=== PATIENT | male | born 1965 | race Caucasian/White ===

== ENCOUNTER 2017-03-30 19:56 | Emergency (ER) | payer OTHER ==
[2017-03-30 19:58] VITALS: BP 130/79; PULSE 77; RESP 16; TEMP 98.5; O2SAT 97
--- NOTE | 2017-03-30 20:54 | PD ---
HPI Chief Complaint: Musculoskeletal Complaint Time Seen by Provider: 20:43 Travel History International Travel<30 days: No Contact w/Intl Traveler<30days: No Traveled to known affect area: No History of Present Illness HPI 52-year-old white male presents to emergency department complains of left foot pain now for one month. He states that he had a fracture in his foot which he had seen Dr. Kuo. He states that this feels the same as if he had broken in the past. He states the pain is mild but can be moderate with attempting to weight-bear. States the pain is along the lateral side part of his foot. He states that the fracture was initially diagnosed by MRI. He was placed in a boot for 8 weeks. He states that he has been back walking on his foot again now for the last 2-3 months. He does not recall any recurrent injury. He denies any focal numbness, tingling or weakness. PFSH Past Medical History Narrative Medical Left foot fracture Diminished Hearing: No Tetanus Vaccination: < 5 Years Past Surgical History Surgical History: No Previous Surgery Social History Alcohol Use: No Tobacco Use: No Substance Use: No Allergies-Medications (Allergen,Severity, Reaction): Coded Allergies: cortisone (Unverified Allergy, Severe, 10/27/16) Reported Meds & Prescriptions Reported Meds & Active Scripts Active Diclofenac Sodium DR (Diclofenac Sodium) 75 Mg Tabdr 75 Mg PO BID Review of Systems General / Constitutional: No: Fever Eyes: No: Visual changes HENT: No: Headaches Cardiovascular: No: Chest Pain or Discomfort Respiratory: No: Shortness of Breath Gastrointestinal: No: Abdominal Pain Genitourinary: No: Dysuria Musculoskeletal: Positive: Limited ROM, Pain, No: Myalgias, Arthralgias, Weakness, Cramping, Edema Skin: No Rash Neurologic: No: Weakness Psychiatric: No: Depression Endocrine: No: Polydipsia Hematologic/Lymphatic: No: Easy Bruising Physical Exam Narrative GENERAL: This is a well-nourished, well-developed patient, in no apparent distress. SKIN: No rashes, ecchymoses or lesions. Warm and dry. HEAD: Atraumatic. Normocephalic. EYES: PERRL, EOMI, no discharge or injection. No scleral icterus. EARS: Clear NOSE: Nasal turbinates appear normal. THROAT: Mucosa pink and moist. Airway patent. NECK: Trachea midline. supple, moves head freely. LUNGS: Clear to auscultation. CV: Regular in rhythm. ABDOMEN: Soft nontender. EXT: No clubbing cyanosis or edema. Examination of the left foot reveals pain along the fifth metatarsal. There is no erythema, warmth or ecchymosis. No edema. The skin is intact. Patient complains of referred pain to the forefoot. No pain in heel, Achilles, toes. No pain in the ankle, knee or hip. The right lower extremity as well as upper extremities are without localizing bony tenderness or deformity. Patient has intact sensation with good distal pulses. Data Data Last Documented VS Vital Signs Date Time Temp Pulse Resp B/P (MAP) Pulse Ox O2 Delivery O2 Flow Rate FiO2 03/30/17 19:58 98.5 77 16 130/79 (96) 97 Orders Orders Foot, Complete ([id number]) (03/30/17 20:48) Splint Or Brace Apply/Monitor (03/30/17 20:48) Crutches (03/30/17 20:48) Naproxen (Naprosyn) (03/30/17 21:00) MDM Medical Decision Making Medical Screen Exam Complete: Yes Emergency Medical Condition: Yes Medical Record Reviewed: Yes Interpretation(s) Left foot: Negative for acute fracture. Differential Diagnosis MDM: High Differential diagnoses: Fracture, sprain, strain, dislocation, contusion, neurovascular injury Narrative Course Patient is given Motrin 800 mg by mouth, crutches, posterior splint. X-ray of the left foot. X-ray of the left foot reveals no obvious fracture. Due to the patient's complaint of pain he is placed in a posterior splint and given crutches. This is left foot pain rule out occult fracture Diagnosis Primary Impression: left foot pain rule out occult fracture Patient Instructions: General Instructions Additional Instructions: Rest. Elevation. Ice packs for the next 3 days. Posterior splint and crutches. No weight-bearing.. Medications as directed Follow-up with Dr. Flanagan in one week Return to the ER if any problems Med/Other Pt SpecificInfo: Prescription(s) given Scripts Diclofenac Sodium (Diclofenac Sodium DR) 75 Mg Tabdr 75 MG PO BID, #20 TAB 0 Refills Prov: Ronald Wadsworth MD 03/30/17 Disposition: 01 DISCHARGE HOME Condition: Stable Mars Archer Mar 30, 2017 20:54
[2017-03-30] MEDS ORDERED: DICL75TA PO (20:55)
[2017-03-30] MEDS ORDERED: NAPROXEN 500 MG TAB PO ONE (21:00)
--- NOTE | 2017-03-30 21:18 | RADRPT ---
EXAM DATE/TIME: 03/30/2017 20:56 [facility] COMPARISON: No previous studies available for comparison. EXTERNAL COMPARISON : [facility] INDICATIONS : Left foot pain. Patient states he fractured his foot in December last year. Pain started again this w solomon. MEDICAL HISTORY : Left foot fracture. SURGICAL HISTORY : None. ENCOUNTER: Initial ACUITY: 3 days PAIN SCORE: 5/10 LOCATION: Left foot. FINDINGS: Three view examination of the left foot demonstrates no soft tissue swelling, dislocation, or fractur e. The tarsal bones appear intact. The interphalangeal and metatarsophalangeal joints are intact. The calcaneus is intact. Bony mineralization is normal. CONCLUSION: Unremarkable examination of the left foot. Deven Myrick Jr., MD on March 30, 2017 at 21:14 Board Certified Radiologist. This report was verified electronically.
[2017-03-30 22:11] VITALS: RESP 20
== END 2017-03-30 22:11 | disposition home or self-care (01) ==
LOC: NEPK 19:56
DX: M79.672 Pain in left foot (principal)
CPT/HCPCS: 29515; 73630; 99283; E0113

== ENCOUNTER 2017-05-25 21:22 | Emergency (ER) | payer OTHER ==
[~2017-05-25] VITALS: Ht 170.2 cm; Wt 80.0 kg
[~2017-05-25 21:22] MED LIST: DICL75TA PO
[2017-05-25 21:54] VITALS: BP 163/80; PULSE 95; RESP 16; TEMP 98.9; O2SAT 95
--- NOTE | 2017-05-26 02:06 | PD ---
HPI Chief Complaint: Injury Time Seen by Provider: 01:59 Travel History International Travel<30 days: No Contact w/Intl Traveler<30days: No Traveled to known affect area: No History of Present Illness HPI The patient at about 9 PM or so with step walking down some steps at his home when he accidentally stepped on the garden hose and had a twisting motion to his right ankle and caused the fall. Patient denies any blunt head trauma, no LOC, no other area that is tender or painful. He noted some swelling to his right midfoot which caused some concern. Pain is worsened by weightbearing, alleviated slightly by ice pack. Patient states allergy only to cortisone Past medical history includes C4 through C7 neck fusion, hypertension, and multiple orthopedic surgeries such as rotator cuff meniscal neck fusion shoulder repair knee repair and most recently a left foot fracture that required a boot. PFSH Past Medical History Diminished Hearing: No Hypertension: Yes Past Surgical History Neurologic Surgery: Yes (C4-C7 NECK FUSION) Social History Alcohol Use: No Tobacco Use: No Substance Use: No Allergies-Medications (Allergen,Severity, Reaction): Coded Allergies: cortisone (Unverified Allergy, Severe, 05/25/17) Reported Meds & Prescriptions Reported Meds & Active Scripts Active Diclofenac Sodium DR (Diclofenac Sodium) 75 Mg Tabdr 75 Mg PO BID Review of Systems General / Constitutional: No: Fever Eyes: No: Visual changes HENT: No: Headaches Cardiovascular: No: Chest Pain or Discomfort Respiratory: No: Shortness of Breath Gastrointestinal: No: Abdominal Pain Genitourinary: No: Dysuria Musculoskeletal: Positive: Limited ROM, Pain (2 right foot and ankle) Skin: No Rash Neurologic: No: Weakness Psychiatric: No: Depression Endocrine: No: Polydipsia Hematologic/Lymphatic: No: Easy Bruising Physical Exam Narrative GENERAL: SKIN: Warm and dry. HEAD: Atraumatic. Normocephalic. EYES: Pupils equal and round. No scleral icterus. No injection or drainage. ENT: No nasal bleeding or discharge. Mucous membranes pink and moist. NECK: Trachea midline. No JVD. CARDIOVASCULAR: Regular rate and rhythm. RESPIRATORY: No accessory muscle use. Clear to auscultation. Breath sounds equal bilaterally. GASTROINTESTINAL: Abdomen soft, non-tender, nondistended. Hepatic and splenic margins not palpable. MUSCULOSKELETAL: Extremities without clubbing, cyanosis. No obvious deformities. Mild edema noted to the right dorsal midfoot area, no laceration, no abrasions. Right lateral malleolus has some slight mild edema as well. NEUROLOGICAL: Awake and alert. No obvious cranial nerve deficits. Motor grossly within normal limits. Five out of 5 muscle strength in the arms and legs. Normal speech. PSYCHIATRIC: Appropriate mood and affect; insight and judgment normal. Data Data Last Documented VS Vital Signs Date Time Temp Pulse Resp B/P (MAP) Pulse Ox O2 Delivery O2 Flow Rate FiO2 05/26/17 03:20 05/25/17 21:54 98.9 95 16 95 Room Air Orders Orders Ankle, Limited (Ap&Lat) (05/26/17 02:01) Foot, Limited (2vws) (05/26/17 02:01) Ice/Cold Pack (05/26/17 02:01) Tramadol (Ultram) (05/26/17 03:15) Support Splint (05/26/17 03:12) Ed Discharge Order (05/26/17 03:15) Brace Ankle Stirrup (05/26/17 ) MDM Medical Decision Making Medical Screen Exam Complete: Yes Emergency Medical Condition: Yes Medical Record Reviewed: Yes Differential Diagnosis Ankle sprain versus ankle dislocation versus ankle fracture versus foot fracture versus foot dislocation versus foot contusion Narrative Course X-ray of foot and ankle did not show any evidence of fracture dislocation or subluxation. Diagnosis Primary Impression: Right foot and ankle sprain Patient Instructions: Ankle Sprain (ED), Foot Sprain (ED), General Instructions Disposition: 01 DISCHARGE HOME Condition: Stable Galo Olivo MD May 26, 2017 02:05
--- NOTE | 2017-05-26 02:48 | RADRPT ---
EXAM DATE/TIME: 05/26/2017 02:08 [facility] COMPARISON: No previous studies available for comparison. INDICATIONS : Right ankle pain after tripping over a garden hose. MEDICAL HISTORY : None. SURGICAL HISTORY : None. ENCOUNTER: Initial ACUITY: 1 day PAIN SCORE: 8/10 LOCATION: Right ankle. FINDINGS: Two view examination was performed of the right ankle. The bony structures are in normal alignment. No evidence of fracture or dislocation. Lateral soft tissue swelling. No radiopaque foreign bodies are seen. Bony mineralization is normal. CONCLUSION: Lateral soft tissue swelling. Deven Myrick Jr., MD on May 26, 2017 at 2:46 Board Certified Radiologist. This report was verified electronically.
--- NOTE | 2017-05-26 02:48 | RADRPT ---
EXAM DATE/TIME: 05/26/2017 02:11 [facility] COMPARISON: No previous studies available for comparison. INDICATIONS : Right foot pain after tripping over a garden hose. MEDICAL HISTORY : None. SURGICAL HISTORY : None. ENCOUNTER: Initial ACUITY: 1 day PAIN SCORE: 8/10 LOCATION: Right foot. FINDINGS: Two view examination of the right foot demonstrates no soft tissue swelling, dislocation, or fracture . The calcaneus is intact. Bony mineralization is normal. CONCLUSION: Unremarkable limited examination of the right foot. Deven Myrick Jr., MD on May 26, 2017 at 2:46 Board Certified Radiologist. This report was verified electronically.
[2017-05-26] MEDS ORDERED: traMADol HCL 50 MG TAB PO ONE (03:15)
== END 2017-05-26 03:44 | disposition home or self-care (01) ==
LOC: NEPE 21:22
DX: S93.401A Sprain of unspecified ligament of right ankle, initial encounter (principal); W18.09XA Striking against other object with subsequent fall, initial encounter; Y93.01 Activity, walking, marching and hiking; Y92.009 Unspecified place in unspecified non-institutional (private) residence as the place of occurrence of the external cause
CPT/HCPCS: 73600; 73620; 99283; E0113; L1906